=== PATIENT | male | born 1995 | race Two or more races ===

== ENCOUNTER 2022-07-31 10:11 | Emergency (ER) | payer SELFPAY ==
[~2022-07-31] VITALS: Ht 177.8 cm; Wt 83.5 kg
--- NOTE | 2022-07-31 10:20 | NUR ---
TO ER BED 6. NAUSEA, VOMITING SINCE LAST NIGHT. DIARRHEA SINCE AM. ALSO C/O COUGH SHOULDER AND BACK PAIN SINCE YESTERDAY. PAIN 5/10 AT BEDSIDE. PROVIDED WITH WARM BLANKET FOR COMFORT. AWAITING MD SOTO.
--- NOTE | 2022-07-31 10:30 | NUR ---
PT CANT PROVIDE URINE AT THIS TIME. PT PROVIDED WITH URINE CUP, WILL ENCOURAGE AGAIN.
--- NOTE | 2022-07-31 10:54 | NUR ---
IV ESTABLIHSED R AC 20G. LABS DRAWN AND COLLECTED AT BEDSIDE.
[2022-07-31] MEDS ORDERED: ONDANSETRON HCL/PF 4 MG/2 ML VIAL IVP ONE (11:00)
[2022-07-31] MEDS ORDERED: FAMOTIDINE/PF INJ 20 MG/2 ML VIAL IV ONE ×2 (11:00)
[2022-07-31] MEDS ORDERED: IV NS 0.9% 1,000 ML BAG IV ONE (11:00)
[2022-07-31] MEDS ORDERED: ONDANSETRON HCL/PF 4 MG/2 ML VIAL ONE (11:00)
[2022-07-31 11:09] LABS: BASOPHILS % (AUTO) 0.2 % (0.0-2.0); EOSINOPHILS % (AUTO) 0.7 % (0.0-6.0); HEMATOCRIT 52 % (39-51); HEMOGLOBIN 17.2 g/dL (13.5-17.5); LYMPHOCYTES # (AUTO) 0.4 K/uL (0.8-4.8); LYMPHOCYTES % (AUTO) 4.3 % (20.0-44.0); MEAN CORPUSCULAR HGB CONC 33 g/dl (31.0-36.0); MEAN CORPUSCULAR VOLUME 89 fL (80-96); MONOCYTES # (AUTO) 0.5 K/uL (0.1-1.30); MONOCYTES % (AUTO) 5.3 % (2.0-12.0); NEUTROPHILS # (AUTO) 8.3 K/uL (1.8-8.9); NEUTROPHILS % (AUTO) 89.5 % (43.0-81.0); PLATELET COUNT (AUTO) 159 K/uL (150-450); RED BLOOD CELL COUNT(AUTO) 5.79 MIL/uL (4.5-6.0); WHITE BLOOD COUNT (AUTO) 9.3 K/uL (4.3-11.0)
[2022-07-31 11:28] LABS: CALCIUM, SERUM 8.8 mg/dL (8.5-10.1); CREATININE 1.3 mg/dL (0.6-1.3); POTASSIUM 3.7 mmol/L (3.5-5.1)
[2022-07-31 11:35] LABS: ALBUMIN 3.9 g/dL (3.4-5.0); BILIRUBIN,DIRECT 0.2 mg/dL (0.0-0.2); BILIRUBIN,TOTAL 0.7 mg/dL (0.2-1.0); TOTAL PROTEIN, SERUM 7.4 g/dL (6.4-8.2)
--- NOTE | 2022-07-31 11:55 | NUR ---
URINE COLLECTED AND SENT
[2022-07-31] MEDS ORDERED: ONDA4TAB5 PO (12:14)
[2022-07-31] MEDS ORDERED: KETOROLAC TROMETHAMINE INJ 30 MG/ML VIAL IV ONE (12:30)
[2022-07-31] MEDS ORDERED: KETOROLAC TROMETHAMINE 15 MG/ML VIAL ONE (12:30)
[2022-07-31 12:50] LABS: BILIRUBIN,URINE 2+ (NEGATIVE); COLOR,URINE DARK YELLOW (YELLOW); LEUKOCYTE ESTERASE ,URINE NEGATIVE (NEGATIVE); NITRITE, URINE NEGATIVE (NEGATIVE); PROTEIN,URINE TRACE mg/dl (NEGATIVE); UGLUCOSE NEGATIVE (NEGATIVE)
[2022-07-31 12:58] LABS: BACTERIA,URINE Rare /HPF (None Seen); RBC,URINE 0-2 /HPF (0-2); SQUAMOUS EPITHELIAL CELL,UR Few /HPF (None Seen)
--- NOTE | 2022-07-31 13:09 | NUR ---
IV removed. Catheter intact and site benign. Pressure and 4x4 applied to site. No bleeding noted.Patient discharged to home in stable condition. Written and verbal after care instructions given. Patient verbalizes understanding of instruction.
[2022-07-31 13:10] VITALS: BP 136/77
== END 2022-07-31 13:10 | disposition home or self-care (01) ==
LOC: ER 10:19
DX: K52.9 Noninfective gastroenteritis and colitis, unspecified (principal); E86.0 Dehydration; F17.200 Nicotine dependence, unspecified, uncomplicated; Z88.8 Allergy status to other drugs, medicaments and biological substances; Z79.899 Other long term (current) drug therapy
CPT/HCPCS: 99284; 96374; 96375; 96361; 85025; 80048; 83690; 80076; 81001; 36415; J3490; J2405; J7030; J1885

== ENCOUNTER 2023-03-08 10:22 | Emergency (ER) | payer OTHER ==
[~2023-03-08] VITALS: Ht 177.8 cm; Wt 81.2 kg
[~2023-03-08 10:22] MED LIST: ONDA4TAB5 PO
[2023-03-08] MEDS ORDERED: ACETAMINOPHEN ES 500 MG TABLET PO ONE (11:00)
[2023-03-08] MEDS ORDERED: ACETAMINOPHEN ES 500 MG TABLET ONE (11:06)
[2023-03-08] MEDS ORDERED: ONDANSETRON 4 MG TAB.RAPDIS ONE (12:16)
[2023-03-08] MEDS ORDERED: ONDANSETRON 4 MG TAB.RAPDIS SL ONE (12:30)
[2023-03-08 13:04] VITALS: BP 128/72; TEMP 99.2; O2SAT 100
== END 2023-03-08 13:05 | disposition home or self-care (01) ==
LOC: ER 10:26
DX: U07.1 COVID-19 (principal); F17.200 Nicotine dependence, unspecified, uncomplicated; Z88.8 Allergy status to other drugs, medicaments and biological substances; Z60.2 Problems related to living alone
CPT/HCPCS: 99284; 71045; 87426; 87804 ×2; Q0162; C9803

== ENCOUNTER 2023-03-24 14:05 | Emergency (ER) | payer OTHER ==
[~2023-03-24] VITALS: Ht 175.3 cm; Wt 77.6 kg
[2023-03-24] MEDS ORDERED: ALBU8.5H8 INH (15:20)
[2023-03-24 15:46] VITALS: BP 120/65; TEMP 98.8; O2SAT 97
== END 2023-03-24 15:35 | disposition home or self-care (01) ==
LOC: ER 14:10
DX: R06.02 Shortness of breath (principal); U09.9 Post COVID-19 condition, unspecified; J45.909 Unspecified asthma, uncomplicated; F17.200 Nicotine dependence, unspecified, uncomplicated; Z88.8 Allergy status to other drugs, medicaments and biological substances; Z60.2 Problems related to living alone